=== PATIENT | female | born 1935 | race Caucasian/White ===

== ENCOUNTER 2019-07-03 05:04 | Emergency (ER) | payer MEDICARE, OTHER ==
[~2019-07-03] VITALS: Ht 172.7 cm; Wt 77.1 kg
[2019-07-03 05:05] VITALS: BP 135/67
--- NOTE | 2019-07-03 05:05 | NUR ---
ED Nurse Note: Patient walked into ED from home S/P fall. Noted with bump on the right side of the head. Also reports right upper back pain. No LOC/ KO. Pt alert and oriented, verbally responsive. Afebrile. Not in any distress. VSS
--- NOTE | 2019-07-03 05:10 | NUR ---
ED Nurse Note: ERMD at bedside.
[2019-07-03] MEDS ORDERED: ATORVASTATIN CA20 MG ORAL (05:24)
[2019-07-03] MEDS ORDERED: HYDROCHLOROTH12.5 M2 ORAL (05:24)
[2019-07-03] MEDS ORDERED: SODIUM BICARBO650 MG PO (05:24)
[2019-07-03] MEDS ORDERED: GABAPENTIN100 MG ORAL (05:24)
[2019-07-03] MEDS ORDERED: LINZESS290 MCG PO (05:24)
[2019-07-03] MEDS ORDERED: SYNTHROID88 MCG ORAL (05:24)
[2019-07-03] MEDS ORDERED: CATAPRES0.1 MG ORAL (05:24)
[2019-07-03] MEDS ORDERED: AMLODIPINE BESY10 MG ORAL (05:24)
[2019-07-03] MEDS ORDERED: JANUMET 50-5001 EACH ORAL (05:24)
[2019-07-03] MEDS ORDERED: MICARDIS80 MG ORAL (05:24)
[2019-07-03] MEDS ORDERED: ATIVAN0.5 MG ORAL (05:24)
[2019-07-03] MEDS ORDERED: NEXIUM40 MG ORAL (05:24)
[2019-07-03] MEDS ORDERED: FOLIC ACID1 MG ORAL (05:24)
[2019-07-03] MEDS ORDERED: ALLOPURINOL100 M1 ORAL (05:24)
--- NOTE | 2019-07-03 05:27 | Emergency Room Report ---
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 She had no LOC no headache no nausea vomiting, no chest pain or shortness of breath, patient is not any blood thinners. Patient has a history of hypertension. (Mauro Betts MD) Allergies: Coded Allergies: No Known Allergies (Unverified , 07/03/19) Patient History Past Medical History: see triage record Reviewed Nursing Documentation: PMH: Agreed; PSxH: Agreed (Mauro Betts MD) Nursing Documentation-PMH Hx Hypertension: Yes Hx Diabetes: Yes (Mauro eBtts MD) Review of Systems All Other Systems: negative except mentioned in HPI (Mauro Betts MD) Physical Exam Vital Signs Date Time Temp Pulse Resp B/P (MAP) Pulse Ox O2 Delivery O2 Flow Rate FiO2 07/03/19 04:55 98.8 83 19 135/67 (89) 96 Room Air Sp02 EP Interpretation: reviewed, normal General Appearance: well appearing, no apparent distress, alert Head: normocephalic, other - Hematoma superior aspect of head Eyes: bilateral eye PERRL, bilateral eye EOMI ENT: uvula midline, moist mucus membranes Neck: supple, thyroid normal, supple/symm/no masses Respiratory: lungs clear, no respiratory distress, no retraction, no accessory muscle use Cardiovascular #1: normal peripheral pulses, regular rate, rhythm, no edema, no gallop, no murmur Gastrointestinal: non tender, soft, no guarding, no rebound Musculoskeletal: normal inspection, other - Right upper extremity: Tenderness to palpation along the lateral aspect of the deltoid, radial median ulnar nerve grossly intact, 2+ radial pulses, range of motion of the right shoulder is limited due to pain Neurologic: alert, oriented x3 Psychiatric: mood/affect normal Skin: no rash, warm/dry (Mauro Betts MD) Medical Decision Making Diagnostic Impression: Primary Impression: Fall Qualified Codes: W19.XXXA - Unspecified fall, initial encounter Additional Impressions: Head injury, acute, without loss of consciousness Qualified Codes: S09.90XA - Unspecified injury of head, initial encounter Contusion of shoulder, right Qualified Codes: S40.011A - Contusion of right shoulder, initial encounter ER Course 83-year-old female presents with ground-level fall, patient rolled out of bed hit her head against the dresser, and hit her right shoulder, will evaluate for fracture of the right shoulder will also evaluate for any intracranial bleed or fracture, patient had no LOC, low mechanism of injury. Xr shoulder neg for acute pathology, patient given sling Ct Head pending Signed out to Dr. Enriquez (Mauro Betts MD) Other X-Ray Diagnostic Results Other X-Ray Diagnostic Results : X-Ray ordered: Right Shoulder # of Views/Limited Vs Complete: 3 View Indication: Pain EP Interpretation: Yes Interpretation: no dislocation, no fractures Impression: No acute disease Electronically Signed by: Mauro Betts MD (Mauro Betts MD) CT/MRI/US Diagnostic Results CT/MRI/US Diagnostic Results : Impression Procedure: CT Head no Contrast Indications: Headache, status post head trauma Technique: Spiral acquisitions obtained through the brain. Angled axial and coronal 5 x 5 mm slices were reconstructed. Total dose length product 1426 mGycm. CTDI vol(s) 6 2 mGy. Dose reduction achieved using automated exposure control Comparison: None. Findings: No acute intracranial hemorrhage or edema. No mass effect or midline shift. Normal mullins-white differentiation. Old lacunar infarct is seen in the right basal ganglia. There is minimal focal right frontal region scalp soft tissue swelling. Intact calvarium. The mastoids are clear. Visualized orbits and sinuses are unremarkable Impression: Evidence of minimal right frontal scalp soft tissue injury. Negative for acute intracranial bleed or mass effect Old right basal ganglia lacunar infarct This agrees with the preliminary interpretation provided overnight by [facility]. The CT scanner at [facility] is accredited by the [employer] and the scans are performed using protocols designed to limit radiation exposure to as low as reasonably achievable to attain images of sufficient resolution adequate for diagnostic evaluation. (Jan Enriquez M.D.) Last Vital Signs Date Time Temp Pulse Resp B/P (MAP) Pulse Ox O2 Delivery O2 Flow Rate FiO2 07/03/19 05:05 98.8 83 19 135/67 96 Room Air (Mauro Betts MD) Reevaluation Impression Care obtained from Dr Betts pending CT head. No intracranial injury noted. pt stable for outpt follow up and discharge. Given tylenol for headache. Pt Dc with copies of all results. (Jan Enriquez M.D.) Condition: Stable Scripts Acetaminophen* (TYLENOL EXTRA STRENGTH*) 500 Mg Tablet 500 MG ORAL Q8H PRN for Prn Headache/Temp > 101 for 10 Days, #30 TAB 0 Refills Prov: Jan Enriquez M.D. 07/03/19 Referrals: [facility] Shaye Gupta. [facility] Patient Instructions: Contusion, [id number], Head Injury, Adult, [id number] , Shoulder Pain, [id number] Additional Instructions: The patient was provided with discharge instructions, notified to follow-up with a primary care doctor and or specialist in the next 24-48 hours, and to return to the ED if they have worsening of their symptoms. Please note that this report is being documented using DRAGON technology. This can lead to erroneous entry secondary to incorrect interpretation by the dictating instrument. Mauro Betts MD Jul 03, 2019 05:27 Jan Enriquez M.D. Jul 04, 2019 22:06
--- NOTE | 2019-07-03 05:32 | NUR ---
ED Nurse Note: Xray at bedside.
[2019-07-03] MEDS ORDERED: Acetaminophen 500mg (ES) tab ORAL ONE (06:00)
--- NOTE | 2019-07-03 06:10 | NUR ---
ED Nurse Note: Pt was taken for CT.
--- NOTE | 2019-07-03 06:19 | NUR ---
ED Nurse Note: Pt came back from CT.
--- NOTE | 2019-07-03 07:10 | NUR ---
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
[2019-07-03 07:31] VITALS: BP 115/48
[2019-07-03] MEDS ORDERED: TYLENOL EXTRA500 MG ORAL (07:46)
[2019-07-03 08:24] VITALS: BP 115/48
--- NOTE | 2019-07-03 08:24 | NUR ---
ER DISCHARGE NOTE: Patient is cleared to be discharged per TOSIN [place] , pt is aox4, on room air, with stable vital signs. pt was given dc and prescription instructions, pt was able to verbalize understanding, pt id band removed without complications. patient transferred back home via ambulance. pt took all belongings.
--- NOTE | 2019-07-03 08:33 | Diagnostic Imaging Report ---
Indications: Headache, status post head trauma Technique: Spiral acquisitions obtained through the brain. Angled axial and coronal 5 x 5 mm slices were reconstructed. Total dose length product 1426 mGycm. CTDI vol(s) 6 2 mGy. Dose reduction achieved using automated exposure control Comparison: None. Findings: No acute intracranial hemorrhage or edema. No mass effect or midline shift. Normal mullins-white differentiation. Old lacunar infarct is seen in the right basal ganglia. There is minimal focal right frontal region scalp soft tissue swelling. Intact calvarium. The mastoids are clear. Visualized orbits and sinuses are unremarkable Impression: Evidence of minimal right frontal scalp soft tissue injury. Negative for acute intracranial bleed or mass effect Old right basal ganglia lacunar infarct This agrees with the preliminary interpretation provided overnight by [facility]. The CT scanner at [facility] is accredited by the [employer] and the scans are performed using protocols designed to limit radiation exposure to as low as reasonably achievable to attain images of sufficient resolution adequate for diagnostic evaluation.
--- NOTE | 2019-07-03 17:36 | Diagnostic Imaging Report ---
Indication: Reason For Exam: PAIN Technique: 3 views of the left shoulder Comparison: None Findings: No acute fractures or dislocations. Joint spaces are preserved. Impression: Negative
== END 2019-07-03 08:33 | disposition home or self-care (01) ==
LOC: EDBD 05:04 → EMR 05:43
DX: S09.90XA Unspecified injury of head, initial encounter (principal); S40.011A Contusion of right shoulder, initial encounter; W22.8XXA Striking against or struck by other objects, initial encounter; Y92.9 Unspecified place or not applicable; I10 Essential (primary) hypertension; E11.9 Type 2 diabetes mellitus without complications
CPT/HCPCS: 70450; 99284